=== PATIENT | male | born 1960 | race Two or more races ===

== ENCOUNTER 2023-02-12 08:10 | Emergency (ER) | payer OTHER ==
[~2023-02-12] VITALS: Ht 167.6 cm; Wt 70.3 kg
[2023-02-12] MEDS ORDERED: SPIR25TA6 PO (08:23)
[2023-02-12] MEDS ORDERED: TAMS-3 PO (08:23)
[2023-02-12] MEDS ORDERED: GABA-532 PO (08:23)
[2023-02-12] MEDS ORDERED: ENAL20TA18 PO (08:23)
[2023-02-12] MEDS ORDERED: ACET-2605 PO (08:23)
[2023-02-12] MEDS ORDERED: ASPI81TA31 PO (08:23)
[2023-02-12] MEDS ORDERED: CLOT15CR27 TP (08:23)
[2023-02-12] MEDS ORDERED: IBUP-1627 PO (08:23)
[2023-02-12] MEDS ORDERED: INSU100I26 SQ (08:23)
[2023-02-12] MEDS ORDERED: DULA0.75 SQ (08:23)
[2023-02-12] MEDS ORDERED: HYDR25TA4 PO (08:23)
[2023-02-12] MEDS ORDERED: ATOR20TA PO (08:23)
[2023-02-12] MEDS ORDERED: NITROGLYCERIN OINT 1 GM PACKET TP ONE ×2 (08:30→08:56)
[2023-02-12] MEDS ORDERED: METOPROLOL TARTRATE 50 MG TABLET PO ONE (08:30)
[2023-02-12] MEDS ORDERED: ONDANSETRON 4 MG/2 ML VIAL IV ONE (08:30)
[2023-02-12] MEDS ORDERED: HYDROMORPHONE 1 MG/1 ML DISP.SYRIN IV ONE (08:30)
[2023-02-12] MEDS ORDERED: ASPIRIN 81 MG TAB.CHEW PO ONE (08:30)
[2023-02-12] MEDS ORDERED: ASPIRIN 81 MG TAB.CHEW ONE (08:55)
[2023-02-12] MEDS ORDERED: ONDANSETRON 4 MG/2 ML VIAL ONE (08:55)
[2023-02-12] MEDS ORDERED: HYDROMORPHONE 1 MG/1 ML DISP.SYRIN ONE (08:56)
[2023-02-12] MEDS ORDERED: METOPROLOL TARTRATE 50 MG TABLET ONE (08:56)
[2023-02-12 09:03] VITALS: BP 104/68
[2023-02-12 09:34] LABS: BASOPHILS # (AUTO) 0.1 K/UL (0.0-0.2); BASOPHILS % (AUTO) 0.8 % (0.0-2.0); EOSINOPHILS # (AUTO) 0.7 K/uL (0.0-0.7); EOSINOPHILS % (AUTO) 8.8 % (0.0-7.0); HEMATOCRIT 28.1 % (36.7-47.1); HEMOGLOBIN 9.7 g/dL (12.5-16.3); LYMPHOCYTES # (AUTO) 0.9 K/uL (0.8-4.8); MEAN CORPUSCULAR HEMOGLOBIN 27.5 uug (23.8-33.4); MEAN CORPUSCULAR HGB CONC 35 g/dL (32.5-36.3); MEAN CORPUSCULAR VOLUME 79.4 fL (73.0-96.2); MONOCYTES # (AUTO) 0.9 K/uL (0.1-1.30); MONOCYTES % (AUTO) 11.5 % (0.0-11.0); NEUTROPHILS # (AUTO) 5.5 K/uL (1.8-8.9); NEUTROPHILS % (AUTO) 67.9 % (38.5-71.5); PLATELET COUNT (AUTO) 251 K/uL (152-348); RED BLOOD CELL COUNT(AUTO) 3.53 MIL/uL (4.06-5.63); WHITE BLOOD COUNT (AUTO) 8.1 K/uL (3.6-10.2)
[2023-02-12 09:37] LABS: CALCIUM 8.3 mg/dL (8.5-10.1); CARBON DIOXIDE 31 mmol/L (21-32); CHLORIDE 95 mmol/L (98-107); CREATININE 2.1 mg/dL (0.6-1.3); GLUCOSE 194 mg/dL (74-106); POTASSIUM 3.4 mmol/L (3.5-5.1); SODIUM SERUM 133 mmol/L (136-145); UREA NITROGEN, BLOOD 16 mg/dL (7-18)
[2023-02-12 09:44] LABS: DIFFERENTIAL COMMENT 1
[2023-02-12 14:45] VITALS: O2SAT 95
[2023-02-12] MEDS ORDERED: HYDR-3980 PO (16:52)
== END 2023-02-12 17:30 | disposition home or self-care (01) ==
LOC: ER 08:10
DX: R09.1 Pleurisy (principal); Z79.899 Other long term (current) drug therapy
CPT/HCPCS: 99285; 78580; 96374; 71045; 96375; 80048; 85025; 85379; 87040; 84484 ×2; 36415; 93005; A9540; J2405; J1170; A4606; A4663